=== PATIENT | female | born 1960 | race Caucasian/White ===

== ENCOUNTER → 2017-01-01 | Day surgery (SDC) | payer OTHER ==
[~2017-01-01] MED LIST: MIRA25TA PO; OMEP20TA39 PO; PROPOFOL 500 MG/50 ML BTL IV ONE; SYNT137T PO
--- NOTE | 2017-01-01 11:07 | GIPROC ---
[facility] [address], [address] EGD PROCEDURE REPORT EXAM DATE: 01/01/2017 PATIENT NAME: Mónica Ewing MR #: [id number] BIRTHDATE: 1960 ATTENDING: Kelly Raphael MD ORDER #: [id number] OVERNIGHT STOCKER: Beba Arriola RN STATUS: outpatient INDICATIONS: The patient is a 56 yr old female here for an EGD due to history of esophageal reflux PROCEDURE PERFORMED: EGD w/ biopsy MEDICATIONS: None and Per Anesthesia. TOPICAL ANESTHETIC: CONSENT: The patient understands the risks and benefits of the procedure and understands that these risks include, but are not limited to: sedation, allergic reaction, infection, perforation and/or bleeding. Alternative means of evaluation and treatment include, among others: physical exam, x-rays, and/or surgical intervention. The patient elects to proceed with this endoscopic procedure. medical equipment was checked for proper function. Hand hygiene and appropriate measures for infection prevention was taken. After the risks, benefits and alternatives of the procedure were thoroughly explained, Informed consent was verified, confirmed and timeout was successfully executed by the treatment team. The patient was anesthetized with topical anesthesia and the EC-3490Li ([id number]) endoscope was introduced through the mouth and advanced to the second portion of the duodenum. Retroflexed views revealed a hiatal hernia The gastroscope was then slowly withdrawn and removed. ESOPHAGUS: There was a 3cm segment of suspected Ramos's esophagus found in the distal esophagus. The length of circumferential Ramos's was 1cm (Zoe C1) and the length of Maximal extent of Ramos's was 3cm (Zoe M3). There was no nodular mucosa noted in the Ramos's segment. Multiple biopsies were performed using cold forceps. Sample sent for histology. STOMACH: There was erythematous moderate gastritis in the gastric antrum. A biopsy was performed using cold forceps. Sample sent for histology. DUODENUM: The duodenal mucosa appeared normal in the bulb and second portion of the duodenum. ADVERSE EVENTS: There were no complications. IMPRESSIONS: 1. There was a 3cm segment of suspected Ramos's esophagus found in the distal esophagus; multiple biopsies were performed 2. There was erythematous gastritis in the gastric antrum; biopsy was performed 3. Normal duodenal mucosa in the bulb and second portion of the duodenum 4. Retroflexed views revealed a hiatal hernia RECOMMENDATIONS: 1. Await biopsy results. Biopsy results will not be ready for 7-10 days. If you don't hear from us in two weeks, call our office for biopsy results. 2. Anti-reflux regimen 3. Protonix 40mg Q AM PATIENT CONDITION: stable DISPOSITION: Home REPEAT EXAM: Return 1 year EGD pending biopsy results Kelly Raphael MD eSigned: Kelly Raphael MD 01/01/2017 11:07 AM cc: Steve Yee [facility] Philomena Ortega M.D. PATIENT NAME: Mónica Ewing MR#: [id number]
--- NOTE | 2017-01-01 11:25 | GIPROC ---
[facility] [address], [address] COLONOSCOPY PROCEDURE REPORT EXAM DATE: 01/01/2017 PATIENT NAME: Mónica Ewing MR #: [id number] BIRTHDATE: 1960 ENDOSCOPIST: Kelly Raphael MD ORDER #: [id number] DIRECTOR OF EMERGENCY NURSING: Beba Arriola RN STATUS: outpatient INDICATIONS: The patient is a 56 yr old female here for a colonoscopy due to chronic diarrhea MEDICATIONS: None and Per Anesthesia. PREP QUALITY: The [place] Bowel Prep Score was Right colon 2, Mid colon 1, and Left colon 0. Total = 3. ESTIMATED BLOOD LOSS: None CONSENT: The patient understands the risks and benefits of the procedure and understands that these risks include, but are not limited to: sedation, allergic reaction, infection, perforation and/or bleeding. Alternative means of evaluation and treatment include, among others: physical exam, x-rays, and/or surgical intervention. The patient elects to proceed with this endoscopic procedure. medical equipment was checked for proper function. Hand hygiene and appropriate measures for infection prevention was taken. After the risks, benefits and alternatives of the procedure were thoroughly explained, Informed consent was verified, confirmed and timeout was successfully executed by the treatment team. A digital exam revealed external hemorrhoids The EC-3490Li ([id number]) endoscope was introduced through the anus and advanced to the cecum, which was identified by both the appendix and ileocecal valve. The instrument was then slowly withdrawn as the colon was fully examined. COLON FINDINGS: A polypoid shaped sessile polyp ranging between 3-5mm in size was found in the rectum. A polypectomy was performed with cold forceps. The resection was complete and the polyp tissue was completely retrieved. A polypoid shaped sessile polyp ranging between 3-5mm in size was found in the sigmoid colon. A biopsy was performed using cold forceps. The colonic mucosa appeared normal in the ascending colon. Multiple random biopsies of the area were performed using cold forceps. Retroflexed views revealed internal hemorrhoids and Retroflexed views revealed small internal hemorrhoids The scope was then completely withdrawn from the patient and the procedure terminated. PROCEDURE WITHDRAWAL TIME:6minutes ADVERSE EVENTS: There were no complications. IMPRESSIONS: 1. A sessile polyp ranging between 3-5mm in size was found in the rectum; polypectomy was performed with cold forceps 2. A sessile polyp ranging between 3-5mm in size was found in the sigmoid colon; biopsy was performed using cold forceps 3. The colonic mucosa appeared normal in the ascending colon; multiple random biopsies of the area were performed using cold forceps 4. Retroflexed views revealed internal hemorrhoids 5. Retroflexed views revealed small internal hemorrhoids 6. Revealed external hemorrhoids RECOMMENDATIONS: 1. Await biopsy results. Biopsy results will not be ready for 7-10 days. If you don't hear from us in two weeks, call our office for results. 2. Continue surveillance 3. Yearly hemoccult RECALL: Return 3 months Colonoscopy Kelly Raphael MD eSigned: Kelly Raphael MD 01/01/2017 11:25 AM cc: Steve Yee [facility] Philomena and Jesus Ortega M.D. PATIENT NAME: Mónica Ewing MR#: [id number]
== END | disposition home or self-care (01) ==
LOC: ESDC 09:16
PROVIDERS: ATTEND Internal Medicine Gastroenterology
DX: K52.9 Noninfective gastroenteritis and colitis, unspecified (principal); K64.4 Residual hemorrhoidal skin tags; K62.1 Rectal polyp; K64.8 Other hemorrhoids; K21.9 Gastro-esophageal reflux disease without esophagitis; K44.9 Diaphragmatic hernia without obstruction or gangrene; K22.70 Barrett's esophagus without dysplasia; K63.5 Polyp of colon; K29.70 Gastritis, unspecified, without bleeding
CPT/HCPCS: 00740; 00810; 43239; 45380; 88305; J3010